=== PATIENT | female | born 1945 | race Caucasian/White ===

== ENCOUNTER 2016-10-19 05:00 | Day surgery (SDC) | payer MEDICARE, BC ==
[2016-10-19] MEDS ORDERED: IV LR 1000 ML 1,000 ML ONE (05:33)
[2016-10-19] MEDS ORDERED: CLINDAMYCIN IV RTU IN D5W 50 ML ONE (05:33)
[2016-10-19] MEDS ORDERED: IV SET PRIMARY 1 EA INFUS.SET MC ONE (05:33)
[2016-10-19] MEDS ORDERED: NEEDLELESS EST SET LARGE BORE 1 EA INFUS.SET MC ONE (05:33)
[2016-10-19] MEDS ORDERED: SECONDARY IV SET 1 EA INFUS.SET MC ONE (06:19)
[2016-10-19] MEDS ORDERED: MIDAZOLAM HCL 2 MG/2ML VIAL ONE (06:35)
[2016-10-19] MEDS ORDERED: FENTANYL PF 250MCG/5ML AMPUL ONE (06:36)
[2016-10-19] MEDS ORDERED: ROCURONIUM BROMIDE 50 MG/5 ML ONE (06:36)
[2016-10-19] MEDS ORDERED: LIDOCAINE HCL/PF 1% 30 ML SDV ONE (06:39)
[2016-10-19] MEDS ORDERED: EPINEPHRINE (1:1000) MDV 30 MG/30ML VIAL ONE (06:39)
== END 2016-10-19 09:20 | disposition home or self-care (01) ==
LOC: DS 05:00
PROVIDERS: ATTEND Specialist
DX: M75.42 Impingement syndrome of left shoulder (principal); M75.102 Unspecified rotator cuff tear or rupture of left shoulder, not specified as traumatic; M75.22 Bicipital tendinitis, left shoulder; I10 Essential (primary) hypertension; E78.5 Hyperlipidemia, unspecified; E03.9 Hypothyroidism, unspecified; K21.9 Gastro-esophageal reflux disease without esophagitis; Z98.51 Tubal ligation status
CPT/HCPCS: 29824; 29826; 88304; 88305; 88311; A4217; A4565; A6402; C1713; J0171; J2250; J3010; J3490 ×2; J7120; Z7610 ×2